=== PATIENT | female | born 1980 | race Two or more races ===

== ENCOUNTER 2019-02-26 06:12 | Inpatient (IN) | payer OTHER ==
[~2019-02-26] VITALS: Ht 152.4 cm; Wt 3.2 kg
[2019-02-26] MEDS ORDERED: PRENATAL TABLE1 EAC1 PO (07:35)
[2019-02-26] MEDS ORDERED: DIALYVITE 800-1 EACH PO (07:36)
[2019-02-26] MEDS ORDERED: VITAMIN C100 MG PO (07:38)
[2019-02-26] MEDS ORDERED: COLACE100 MG PO (07:39)
[2019-02-26] MEDS ORDERED: ASPIR 8181 MG PO (07:40)
== END 2019-03-01 11:08 | disposition home or self-care (01) | DRG 788 ==
LOC: LDR 06:12 → OB/GYN 06:12
PROVIDERS: ADMIT Obstetrics & Gynecology
PROC: 4A1HXCZ Monitoring of Products of Conception, Cardiac Rate, External Approach (ICD-10-PCS; 2019-02-26)
PROC: 10D00Z1 Extraction of Products of Conception, Low, Open Approach (ICD-10-PCS; principal; 2019-02-26 13:15)
DX: O82 Encounter for cesarean delivery without indication (principal); O64.1XX0 Obstructed labor due to breech presentation, not applicable or unspecified; Z3A.39 39 weeks gestation of pregnancy; Z37.0 Single live birth